=== PATIENT | male | born 1965 | race Asian ===

== ENCOUNTER 2020-10-14 18:00 | Emergency (ER) | payer OTHER ==
[~2020-10-14] VITALS: Ht 172.7 cm; Wt 70.0 kg
[2020-10-14] MEDS ORDERED: FLUT16H NASAL (18:09)
[2020-10-14] MEDS ORDERED: ALBU8HFA IH (18:09)
[2020-10-14] MEDS ORDERED: SODIUM CHLORIDE 0.9% 250 ML IRRIG SOLUTION BOTTLE IRRIG ONE (18:30)
[2020-10-14] MEDS ORDERED: BACITRACIN 0.9 GM PACKET OINTMENT TP ONE (18:30)
[2020-10-14] MEDS ORDERED: PERTUSS(ACELL),DIPH,TET VAC/PF 0.5 ML VIAL IM ONE (18:30)
[2020-10-14] MEDS ORDERED: LIDOCAINE 1% 10 ML VIAL ID ONE (19:00)
[2020-10-14] MEDS ORDERED: POVIDONE-IODINE 10% 15 ML SOLUTION UD TP ONE (19:00)
[2020-10-14 20:00] VITALS: BP 149/95
== END 2020-10-14 20:27 | disposition home or self-care (01) ==
LOC: EMS 18:00
DX: S61.301A Unspecified open wound of left index finger with damage to nail, initial encounter (principal); S61.203A Unspecified open wound of left middle finger without damage to nail, initial encounter; J45.909 Unspecified asthma, uncomplicated; F17.210 Nicotine dependence, cigarettes, uncomplicated; W22.8XXA Striking against or struck by other objects, initial encounter; Y93.89 Activity, other specified; Y92.89 Other specified places as the place of occurrence of the external cause; Y99.8 Other external cause status
CPT/HCPCS: 11740; 11760; 90471; 90715; 99284; J3490; 11730

== ENCOUNTER 2021-03-05 12:59 | Emergency (ER) | payer OTHER ==
[~2021-03-05] VITALS: Ht 172.7 cm; Wt 70.5 kg
[~2021-03-05 12:59] MED LIST: ALBU8HFA IH; FLUT16H NASAL
[2021-03-05] MEDS ORDERED: LIDOCAINE 1%/EPI 1:200,000/PF 10 ML VIAL PERC ONE (14:30)
[2021-03-05] MEDS ORDERED: MORPHINE SULFATE 4 MG/ML SYRINGE IVP ONE (15:30)
[2021-03-05] MEDS ORDERED: HYDROCODONE/ACETAMINOPHEN 10-325 MG TABLET PO ONE (17:15)
[2021-03-05] MEDS ORDERED: CeFAZolin 1 GM/DEXTROSE 50 ML IV ONE (17:15)
[2021-03-05 18:07] VITALS: BP 139/76
== END 2021-03-05 18:30 | disposition home or self-care (01) ==
LOC: EMS 13:05
DX: S01.81XA Laceration without foreign body of other part of head, initial encounter (principal); S52.572A Other intraarticular fracture of lower end of left radius, initial encounter for closed fracture; J45.909 Unspecified asthma, uncomplicated; Z79.899 Other long term (current) drug therapy; W19.XXXA Unspecified fall, initial encounter; Y93.89 Activity, other specified; Y92.89 Other specified places as the place of occurrence of the external cause; Y99.8 Other external cause status
CPT/HCPCS: 12013; 29125; 72125; 73110; 96365; 96375; 99284; J0690; J2270; J3490